=== PATIENT | male | born 1975 | race Caucasian/White ===

== ENCOUNTER 2022-06-15 02:29 | Emergency (ER) | payer BC ==
[~2022-06-15] VITALS: Ht 177.8 cm; Wt 77.1 kg
[2022-06-15 04:00] VITALS: BP_SYST 131
--- NOTE | 2022-06-15 04:00 | NUR ---
Pt triaged and placed to ER waiting room in stable condition. Pt c/o vertigo x 1 day. Pt states that he feels dizzy with sudden changes in position or with moving head [id number]. Pt also c/o H/A and states that he had 3 vomiting episodes today.
--- NOTE | 2022-06-15 04:10 | NUR ---
Dr. Peters assessing pt in triage.
--- NOTE | 2022-06-15 04:20 | NUR ---
Specimens collected and sent to lab for COVID and FLU antigens.
[2022-06-15] MEDS ORDERED: MECLIZINE HCL 25 MG TABLET (ANITVERT) PO ONE (04:30)
[2022-06-15] MEDS ORDERED: VAL2 PO (04:32)
[2022-06-15] MEDS ORDERED: MECL-108 PO (04:32)
[2022-06-15 04:40] VITALS: BP_SYST 128
--- NOTE | 2022-06-15 04:40 | NUR ---
Patient given written and verbal discharge instructions and verbalizes understanding. ER MD discussed with patient the results and treatment provided. Patient in stable condition. ID arm band removed. Rx of Dramamine and Valium given. Patient educated on pain management and to follow up with PMD. Pain Scale 3/10. Opportunity for questions provided and answered. Medication side effect fact sheet provided.
== END 2022-06-15 04:40 | disposition home or self-care (01) ==
LOC: SED 02:29
DX: H83.09 Labyrinthitis, unspecified ear (principal); R51.9 Headache, unspecified; M54.2 Cervicalgia; Z79.899 Other long term (current) drug therapy; Z20.822 Contact with and (suspected) exposure to COVID-19
CPT/HCPCS: 99283; 87426; 36415; 87804 ×2; J8597

== ENCOUNTER 2022-12-01 22:25 | Emergency (ER) | payer BC ==
[~2022-12-01] VITALS: Ht 177.8 cm; Wt 74.8 kg
[~2022-12-01 22:25] MED LIST: MECL-108 PO; VAL2 PO
[2022-12-01 22:35] VITALS: BP_SYST 128
--- NOTE | 2022-12-01 22:35 | NUR ---
Triaged and placed patient back to the waiting room. No acute respiratory distress at this time. VSS. Informed patient to notify ED staff for any changes in condition or worsening of symptoms while waiting to be seen by a provider. Patient verbalized understanding.
--- NOTE | 2022-12-01 22:46 | NUR ---
Patient placed in ER BED 8 for evaluation. Bed in lowest position with siderails up. Report given to JUNG CORONADO for continuity of care. Instructed to notify ED staff for any changes in condition or worsening of symptoms. Patient verbalized understanding.
--- NOTE | 2022-12-01 22:54 | NUR ---
ER Dr. Interiano at bedside examining patient.
[2022-12-01] MEDS ORDERED: BACI15OI13 TP (23:12)
[2022-12-01] MEDS ORDERED: BACITRACIN 1 GM OINT TP ONE (23:14)
[2022-12-01] MEDS ORDERED: BACITRACIN ZINC 15 GM TOPICAL OINTMENT TP ONE (23:15)
[2022-12-01 23:21] VITALS: BP_SYST 125
--- NOTE | 2022-12-01 23:21 | NUR ---
Patient given written and verbal discharge instructions and verbalizes understanding. ER Dr Interiano discussed with patient the results and treatment provided. Patient in stable condition. ID arm band removed. Rx of Bacitracin given. Patient educated on pain management and to follow up with PMD. Pain Scale 0/10. Opportunity for questions provided and answered. Medication side effect fact sheet provided.
== END 2022-12-01 23:21 | disposition home or self-care (01) ==
LOC: SED 22:25
DX: S61.212A Laceration without foreign body of right middle finger without damage to nail, initial encounter (principal); Z79.899 Other long term (current) drug therapy; W26.8XXA Contact with other sharp object(s), not elsewhere classified, initial encounter; Y93.89 Activity, other specified; Y92.89 Other specified places as the place of occurrence of the external cause; Y99.8 Other external cause status
CPT/HCPCS: 99282